=== PATIENT | male | born 1990 | race Caucasian/White ===

== ENCOUNTER 2016-10-03 02:27 | Emergency (ER) | payer SELFPAY ==
[2016-10-03 02:56] VITALS: RESP 18; O2SAT 98
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
[2016-10-03] MEDS ORDERED: Lidocaine 1% Inj (20ml) ONE (04:08)
[2016-10-03 05:27] VITALS: BP 144/88; PULSE 90; TEMP 98.1
== END 2016-10-03 05:27 | disposition home or self-care (01) ==
LOC: ED 02:27
DX: S01.511A Laceration without foreign body of lip, initial encounter (principal); S01.512A Laceration without foreign body of oral cavity, initial encounter; S09.93XA Unspecified injury of face, initial encounter; Y04.8XXA Assault by other bodily force, initial encounter; F17.210 Nicotine dependence, cigarettes, uncomplicated

== ENCOUNTER 2017-02-11 17:52 | Emergency (ER) | payer SELFPAY ==
[2017-02-11 17:55] VITALS: BMI 31.1
[2017-02-11 17:57] VITALS: BP 129/76; PULSE 104; RESP 18; TEMP 99.4; O2SAT 97
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
[2017-02-11] MEDS ORDERED: Sodium Chloride 0.9% 1,000 ML IV STA (18:34)
[2017-02-11] MEDS ORDERED: Iohexol 350 MG/100 ML VIAL ONE (18:38)
[2017-02-11 19:20] LABS: URINE BILIRUBIN NEGATIVE (NEGATIVE); URINE BLOOD TRACE-INTACT (NEGATIVE); URINE GLUCOSE (UA) NEGATIVE (NEGATIVE); URINE KETONE NEGATIVE (NEGATIVE); URINE LEUKOCYTE ESTERASE NEGATIVE Leu/uL (NEGATIVE); URINE PROTEIN NEGATIVE mg/dL (<30 mg/dL); URINE UROBILINOGEN 0.2 E.U./dL (<1 E.U./dL)
[2017-02-11 19:21] LABS: URINE APPEARANCE CLEAR (CLEAR); URINE COLOR YELLOW (YELLOW)
[2017-02-11 19:37] LABS: BASO # 0.03 K/mm3 (0.0-2.0); BASO % 0.2 % (0.0-3.0); EOS # 0.1 (0.0-0.7); EOS % 0.9 % (1.5-5.0); GRAN # 10.6 (1.4-6.5); GRAN % 78.8 % (50.0-68.0); HEMATOCRIT 43.5 % (42.0-52.0); LYMPH # 1.7 (1.2-3.4); LYMPH % 12.9 % (22.0-35.0); MEAN CELL VOLUME 94.2 fl (80.0-105.0); MEAN CORPUSCULAR HEMOGLOBIN 33.1 pg (25.0-35.0); MEAN CORPUSCULAR HGB CONC 35.2 g/dl (31.0-37.0); MEAN PLATELET VOLUME 10.3 fl (7.0-11.0); MONO % 7.2 % (1.0-6.0); RED CELL DISTRIBUTION WIDTH 13.8 % (11.5-14.5); WHITE BLOOD COUNT 13.5 10^3/ul (4.5-11.0)
[2017-02-11 19:38] LABS: URINE BACTERIA FEW (NEG); URINE RBC 0 - 2 /hpf (0-2); URINE WBC NEGATIVE /hpf (0-6)
[2017-02-11 19:46] LABS: ALB/GLOB RATIO 1.5 (1.1-1.8); ALKALINE PHOSPHATASE 68 U/L (38-126); ALT/SGPT 54 U/L (7-56); AST/SGOT 36 U/L (17-59); BILIRUBIN,TOTAL 0.5 mg/dL (0.2-1.3); BLOOD UREA NITROGEN 15 mg/dL (7-21); CALCIUM 9.7 mg/dL (8.4-10.5); CARBON DIOXIDE 27 mmol/L (21-33); CHLORIDE 103 mmol/L (98-107); GFR AFRICAN-AMERICAN > 60; GLUCOSE,RANDOM 91 mg/dL (70-110); LIPASE 67 U/L (23-300); SODIUM 141 mmol/L (132-148); TOTAL PROTEIN 8.1 g/dL (5.8-8.3)
[2017-02-11 20:01] LABS: INR 0.93 (0.93-1.08); PARTIAL THROMBOPLASTIN TIME 30.5 Seconds (23.7-30.8)
--- NOTE | 2017-02-11 21:23 | CT ---
EXAM: CT Abdomen and Pelvis With Intravenous Contrast EXAM DATE/TIME: 02/11/2017 6:33 PM CLINICAL HISTORY: The patient age is 26 years old and is male; Pain; Abdominal pain; Localized; Left lower quadrant (llq); Additional info: Abd pain Facility exam id and description: Ct abdpelciv abd pelvis iv contrast only TECHNIQUE: Axial computed tomography images of the abdomen and pelvis with intravenous contrast. All CT scans at this facility use one or more dose reduction techniques, viz.: automated exposure control; ma/kV adjustment per patient size (including targeted exams where dose is matched to indication; i.e. head); or iterative reconstruction technique. Coronal and sagittal reformatted images were created and reviewed. CONTRAST: 100 mL of OMNI administered intravenously. COMPARISON: No relevant prior studies available. FINDINGS: Lower thorax: No acute findings. ABDOMEN: Liver: No mass. Gallbladder and bile ducts: No calcified stones. No ductal dilation. Pancreas: Normal contour, without acute peripancreatic stranding. Spleen: No splenomegaly. Adrenals: No mass. Kidneys and ureters: There are a few small hypodense probable left renal cysts. No hydronephrosis bilaterally. Stomach and bowel: There is wall thickening of the descending colon with diverticuli and pericolonic stranding. This is consistent with diverticulitis. Fluid is identified within the left paracolic gutter. No well-defined loculated pericolonic collection of fluid/abscess is visualized. Additional wall thickening is identified of the sigmoid colon, suggestive of colitis. Appendix: No findings to suggest acute appendicitis. PELVIS: Bladder: No mass. Reproductive: Unremarkable as visualized. ABDOMEN and PELVIS: Intraperitoneal space: No free air. Bones/joints: Mild disc bulging is visualized at L5-S1. Vasculature: No abdominal aortic aneurysm. Lymph nodes: A few enlarged inguinal lymph nodes are seen bilaterally, nonspecific as to etiology. One of the enlarged right inguinal lymph nodes measures 4.3 cm in length. There is no significant retroperitoneal or intrapelvic lymphadenopathy. IMPRESSION: 1. There is wall thickening of the descending colon with diverticuli and pericolonic stranding. This is consistent with diverticulitis. Fluid is identified within the left paracolic gutter. 2. Additional wall thickening is identified of the sigmoid colon, suggestive of colitis. 3. A few enlarged inguinal lymph nodes are seen bilaterally, nonspecific as to etiology. 4. There are a few small hypodense probable left renal cysts. 5. Incidental/non-acute findings are described above.
== END 2017-02-11 22:25 | disposition home or self-care (01) ==
LOC: ED 17:52
DX: K57.92 Diverticulitis of intestine, part unspecified, without perforation or abscess without bleeding (principal)
CPT/HCPCS: 74177; 80053; 81001; 83690; 85025; 85610; 85730; 87040; 96374; 99282; J1885; J7040; Q9967

== ENCOUNTER 2017-12-29 15:19 | Emergency (ER) | payer SELFPAY ==
[2017-12-29 15:19] VITALS: BMI 31.1
[2017-12-29 16:21] VITALS: BP 114/76; PULSE 67; RESP 18; TEMP 97.8; O2SAT 97
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
[2017-12-29] MEDS ORDERED: TDAP Vaccine 0.5 mL Syr IM ONE (16:27)
[2017-12-29] MEDS ORDERED: Amoxicillin-Clav 875-125 mg Tab PO STA (16:27)
== END 2017-12-29 16:50 | disposition home or self-care (01) ==
LOC: ED 15:19
DX: S01.511A Laceration without foreign body of lip, initial encounter (principal); W59.01XA Bitten by nonvenomous lizards, initial encounter; Y92.9 Unspecified place or not applicable; Z23 Encounter for immunization

== ENCOUNTER 2018-01-02 07:23 | Emergency (ER) | payer SELFPAY ==
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
[2018-01-02 07:36] VITALS: BMI 31.6
[2018-01-02 07:44] VITALS: TEMP 97.4
[2018-01-02 12:37] VITALS: BP 121/70; PULSE 90; RESP 16; O2SAT 100
== END 2018-01-02 12:40 | disposition home or self-care (01) ==
LOC: ED 07:23
DX: F10.129 Alcohol abuse with intoxication, unspecified (principal); F17.210 Nicotine dependence, cigarettes, uncomplicated

== ENCOUNTER 2018-10-18 14:21 | Emergency (ER) | payer OTHER ==
[2018-10-18 14:22] VITALS: BMI 31.6
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
[2018-10-18 14:59] VITALS: BP 149/91; PULSE 108; RESP 18; TEMP 98; O2SAT 98
== END 2018-10-18 15:54 | disposition home or self-care (01) ==
LOC: ED 14:21
DX: R04.0 Epistaxis (principal); F17.210 Nicotine dependence, cigarettes, uncomplicated